=== PATIENT | female | born 1940 | race Hispanic/Latino ===

== ENCOUNTER 2020-01-09 05:16 | Emergency (ER) | payer MEDICARE, OTHER ==
[2020-01-09] MEDS ORDERED: ONDANSETRON HCL 4 MG/2 ML VIAL ONE (05:28)
[2020-01-09] MEDS ORDERED: FENTANYL CITRATE PF 50 MCG/1 ML 2ML VIAL ONE (05:28)
== END 2020-01-09 07:56 | disposition home or self-care (01) ==
LOC: EDH 05:16
DX: S13.9XXA Sprain of joints and ligaments of unspecified parts of neck, initial encounter (principal); S00.93XA Contusion of unspecified part of head, initial encounter; I10 Essential (primary) hypertension; Z88.0 Allergy status to penicillin; Z88.2 Allergy status to sulfonamides; Z88.6 Allergy status to analgesic agent; Z91.041 Radiographic dye allergy status; W18.39XA Other fall on same level, initial encounter; Y93.89 Activity, other specified; Y92.89 Other specified places as the place of occurrence of the external cause; Y99.8 Other external cause status
CPT/HCPCS: 70450; 71045; 72125; 73030; 96374; 96375; 99285; J2405; J3010

== ENCOUNTER 2020-01-12 09:14 | Emergency (ER) | payer OTHER ==
[2020-01-12] MEDS ORDERED: ONDANSETRON HCL 4 MG/2 ML VIAL ONE ×2 (09:58→12:40)
[2020-01-12 10:54] LABS: BASOPHILS % (AUTO) 0.1 % (0.0-5.0); EOSINOPHILS % (AUTO) 0.1 % (0.0-8.0); HEMATOCRIT 40.3 % (36-48); LYMPHOCYTES % (AUTO) 10.7 % (21.0-51.0); MEAN CORPUSCULAR HEMOGLOBIN 28.8 pg (27.0-33.0); MONOCYTES % (AUTO) 2.6 % (3.0-13.0); NEUTROPHILS % (AUTO) 86.2 % (40.0-77.0); PLATELET COUNT (AUTO) 230 K/uL (130-400); RED BLOOD CELL COUNT(AUTO) 4.48 MIL/uL (4.00-5.50); RED CELL DISTRIBUTION WIDTH 13.3 % (11.0-15.5)
[2020-01-12 11:08] LABS: CREATININE 0.8 mg/dL (0.5-1.5); POTASSIUM 4.5 mmol/L (3.5-5.1)
[2020-01-12] MEDS ORDERED: FENTANYL CITRATE PF 50 MCG/1 ML 2ML VIAL ONE (11:20)
[2020-01-12 11:53] LABS: INR 0.95 (0.85-1.15); PARTIAL THROMBOPLASTIN TIME 28.4 SEC (26.3-35.5); PROTHROMBIN TIME 10.3 SEC (9.6-11.6)
[2020-01-12 12:15] LABS: APPEARANCE,URINE CLOUDY (CLEAR); BILIRUBIN,URINE NEGATIVE (NEGATIVE); COLOR,URINE YELLOW (YELLOW); GLUCOSE, URINE (UA) NEGATIVE (NEGATIVE); KETONES,URINE NEGATIVE (NEGATIVE); LEUKOCYTE ESTERASE ,URINE SMALL (NEGATIVE); NITRATE,URINE NEGATIVE (NEGATIVE); OCCULT BLOOD,URINE MODERATE (NEGATIVE); PROTEIN,URINE 100 mg/dL (NEGATIVE); UROBILINOGEN,URINE 0.2 mg/dL (0.2-1.0)
[2020-01-12 12:18] LABS: BACTERIA,URINE Many /HPF (None Seen); RBC,URINE 0-1 /HPF (0-1); SQUAMOUS EPITHELIAL CELL,UR Many /HPF (0-2)
[2020-01-12 12:20] LABS: ALANINE AMINOTRANSFERASE 24 U/L (12-78); ALBUMIN 4.1 g/dL (3.5-5.0); ASPARTATE AMINOTRANSFERASE 26 U/L (10-37); BILIRUBIN,DIRECT < 0.1 mg/dL (0.0-0.3); BILIRUBIN,TOTAL 0.3 mg/dL (0.2-1.0)
[2020-01-12] MEDS ORDERED: LEVOFLOXACIN 500 MG/D5W 100 ML 100 ML ONE (12:40)
== END 2020-01-12 14:12 | disposition home or self-care (01) ==
LOC: EDH 09:14
DX: N39.0 Urinary tract infection, site not specified (principal); R11.2 Nausea with vomiting, unspecified; M54.42 Lumbago with sciatica, left side; S00.83XA Contusion of other part of head, initial encounter; S00.33XA Contusion of nose, initial encounter; I10 Essential (primary) hypertension; E78.00 Pure hypercholesterolemia, unspecified; Z88.0 Allergy status to penicillin; Z88.2 Allergy status to sulfonamides; Z88.6 Allergy status to analgesic agent; Z91.041 Radiographic dye allergy status; Z98.890 Other specified postprocedural states; W19.XXXA Unspecified fall, initial encounter; Y93.89 Activity, other specified; Y92.89 Other specified places as the place of occurrence of the external cause; Y99.8 Other external cause status
CPT/HCPCS: 36415; 70450; 80048; 80076; 81001; 82550; 83690; 84484; 85025; 85610; 85730; 87077; 87088; 87186; 93005; 96365; 96375; 96376; 99285; J2405 ×2; J1956; J3010

== ENCOUNTER → 2020-04-13 | Outpatient (CLI) | payer OTHER | END | disposition home or self-care (01) | LOC: RAH 13:07 | PROVIDERS: ATTEND Family Medicine | DX: I70.0 Atherosclerosis of aorta (principal); R91.8 Other nonspecific abnormal finding of lung field; J98.11 Atelectasis; M40.294 Other kyphosis, thoracic region | CPT/HCPCS: 71250 ==

== ENCOUNTER 2023-09-16 15:19 | Emergency (ER) | payer OTHER ==
[~2023-09-16] VITALS: Ht 142.2 cm; Wt 71.7 kg
[2023-09-16 16:10] LABS: BASOPHILS # (AUTO) 0.03 K/uL (0.00-0.20); BASOPHILS % (AUTO) 0.3 % (0.0-5.0); EOSINOPHILS # (AUTO) 0.31 K/uL (0.00-0.70); EOSINOPHILS % (AUTO) 3.3 % (0.0-8.0); HEMATOCRIT 42.6 % (36-48); IMMATURE GRANULOCYTE ABSOLUTE 0.05 K/uL (0-1); LYMPHOCYTES # (AUTO) 1.8 K/uL (1.0-4.8); LYMPHOCYTES % (AUTO) 18.9 % (21.0-51.0); MEAN CORPUSCULAR HEMOGLOBIN 28.8 pg (27.0-33.0); MEAN CORPUSCULAR HGB CONC 31.5 g/dL (32.0-36.0); MEAN CORPUSCULAR VOLUME 91.6 fL (79-99); MONOCYTES # (AUTO) 0.7 K/uL (0.1-1.0); NEUTROPHILS # (AUTO) 6.5 K/uL (1.8-7.7); PLATELET COUNT (AUTO) 249 K/uL (130-400); RED BLOOD CELL COUNT(AUTO) 4.65 MIL/uL (4.00-5.50); RED CELL DISTRIBUTION WIDTH 13.7 % (11.0-15.5); WHITE BLOOD COUNT (AUTO) 9.4 K/uL (4.8-10.8)
[2023-09-16 16:18] LABS: POTASSIUM 3.9 mmol/L (3.5-5.1)
[2023-09-16] MEDS ORDERED: LACTATED RINGERS 1000ML 1,000 ML IV ONE (16:30)
[2023-09-16 17:03] LABS: RAPID GROUP A STREP negative (NEGATIVE)
[2023-09-16 17:11] LABS: INFLUENZA TYPE A Negative For Type A (NEGATIVE); INFLUENZA TYPE B Negative For Type B (NEGATIVE)
[2023-09-16 17:12] LABS: COVID19 (SARS ANTIGEN RAPID) PRESUMPTIVE NEGATIVE (NEGATIVE)
[2023-09-16] MEDS ORDERED: METOCLOPRAMIDE 10 MG/2 ML VIAL IVP ONE (18:00)
[2023-09-16] MEDS ORDERED: KETOROLAC 30MG VIAL (30MG/ML) IVP ONE (18:00)
[2023-09-16] MEDS ORDERED: DIAZEPAM 5 MG/ML 2 ML SYG IVP ONE (18:00)
[2023-09-16] MEDS ORDERED: FAMOTIDINE 20MG VIAL IV ONE (18:00)
[2023-09-16 20:25] LABS: APPEARANCE,URINE CLOUDY (CLEAR); BILIRUBIN,URINE NEGATIVE (NEGATIVE); COLOR,URINE LIGHT-YELLOW (YELLOW); GLUCOSE, URINE (UA) NEGATIVE (NEGATIVE); KETONES,URINE NEGATIVE (NEGATIVE); LEUKOCYTE ESTERASE ,URINE 25 Leu/uL (NEGATIVE); NITRATE,URINE 2+ (NEGATIVE); OCCULT BLOOD,URINE NEGATIVE (NEGATIVE); PH,URINE 5.5 (5.0-8.0); PROTEIN,URINE NEGATIVE (NEGATIVE); UROBILINOGEN,URINE 0.2 mg/dL (0.2-1.0)
[2023-09-16 20:29] LABS: ADD UA MICROSCOPIC YES
[2023-09-16 20:31] LABS: BACTERIA,URINE MOD /HPF (None Seen); MUCUS,URINE RARE LPF (None Seen); SQUAMOUS EPITHELIAL CELL,UR RARE /HPF (0-2)
[2023-09-16] MEDS ORDERED: IBUP-1493 PO (22:28)
[2023-09-16] MEDS ORDERED: LIDOP TD (22:28)
[2023-09-16] MEDS ORDERED: CYCL-309 PO (22:28)
[2023-09-16] MEDS ORDERED: GABA300C PO (22:28)
[2023-09-17 00:38] VITALS: BP 165/79; PULSE 76; RESP 16; O2SAT 97
== END 2023-09-17 00:40 | disposition home or self-care (01) ==
LOC: EDH 15:19
DX: H57.11 Ocular pain, right eye (principal); R53.1 Weakness; I10 Essential (primary) hypertension; M19.90 Unspecified osteoarthritis, unspecified site; E03.9 Hypothyroidism, unspecified; Z20.822 Contact with and (suspected) exposure to COVID-19; Z88.0 Allergy status to penicillin; Z88.2 Allergy status to sulfonamides; Z88.5 Allergy status to narcotic agent; Z91.041 Radiographic dye allergy status
CPT/HCPCS: 99284; 96374; 96375; 96361; 87426; 82550; 80048; 85025; 87077; 87088; 87186; 87880; 87420; 87804 ×2; 83605; 81001; 36415; 72110; 72190; J7120; J3490; J3360; J1885; J2765

== ENCOUNTER 2024-01-16 13:54 | Emergency (ER) | payer OTHER ==
[~2024-01-16] VITALS: Ht 142.2 cm; Wt 71.7 kg
[~2024-01-16 13:54] MED LIST: CYCL-309 PO; GABA300C PO; IBUP-1493 PO; LIDOP TD
[2024-01-16 14:30] LABS: BASOPHILS # (AUTO) 0.03 K/uL (0.00-0.20); BASOPHILS % (AUTO) 0.4 % (0.0-5.0); EOSINOPHILS # (AUTO) 0.68 K/uL (0.00-0.70); EOSINOPHILS % (AUTO) 8.2 % (0.0-8.0); HEMATOCRIT 33.6 % (36-48); IMMATURE GRANULOCYTE ABSOLUTE 0.03 K/uL (0-1); LYMPHOCYTES # (AUTO) 2.5 K/uL (1.0-4.8); LYMPHOCYTES % (AUTO) 30.6 % (21.0-51.0); MEAN CORPUSCULAR HEMOGLOBIN 29.2 pg (27.0-33.0); MEAN CORPUSCULAR HGB CONC 31.8 g/dL (32.0-36.0); MEAN CORPUSCULAR VOLUME 91.8 fL (79-99); MONOCYTES # (AUTO) 0.7 K/uL (0.1-1.0); MONOCYTES % (AUTO) 8.1 % (3.0-13.0); NEUTROPHILS # (AUTO) 4.3 K/uL (1.8-7.7); NEUTROPHILS % (AUTO) 52.3 % (40.0-77.0); PLATELET COUNT (AUTO) 272 K/uL (130-400); RED BLOOD CELL COUNT(AUTO) 3.66 MIL/uL (4.00-5.50); RED CELL DISTRIBUTION WIDTH 14.7 % (11.0-15.5); WHITE BLOOD COUNT (AUTO) 8.3 K/uL (4.8-10.8)
[2024-01-16 14:36] LABS: APPEARANCE,URINE CLEAR (CLEAR); BILIRUBIN,URINE NEGATIVE (NEGATIVE); COLOR,URINE YELLOW (YELLOW); GLUCOSE, URINE (UA) NEGATIVE (NEGATIVE); KETONES,URINE NEGATIVE (NEGATIVE); LEUKOCYTE ESTERASE ,URINE 500 Leu/uL (NEGATIVE); NITRATE,URINE 2+ (NEGATIVE); OCCULT BLOOD,URINE NEGATIVE (NEGATIVE); PH,URINE 6.5 (5.0-8.0); PROTEIN,URINE NEGATIVE (NEGATIVE); UROBILINOGEN,URINE 0.2 mg/dL (0.2-1.0)
[2024-01-16 14:43] LABS: CREATININE 0.9 mg/dL (0.5-1.0); POTASSIUM 4.6 mmol/L (3.5-5.1)
[2024-01-16 14:47] LABS: ALBUMIN 2.8 g/dL (3.5-5.0); BILIRUBIN,TOTAL 0.2 mg/dL (0.2-1.0); TOTAL PROTEIN, SERUM 6.9 g/dL (6.0-8.3)
[2024-01-16 15:10] LABS: ADD UA MICROSCOPIC YES
[2024-01-16 15:11] LABS: BACTERIA,URINE MANY /HPF (None Seen); MUCUS,URINE RARE LPF (None Seen); SQUAMOUS EPITHELIAL CELL,UR RARE /HPF (0-2)
[2024-01-16] MEDS ORDERED: IOHEXOL-350 75 ML VIAL IV ONE (16:59)
[2024-01-16] MEDS: KETOROLAC 15MG/ML VIAL (15MG/ML) IV ONE (17:06)
[2024-01-16] MEDS: 0.9%NACL 1000ML 1,000 ML IV ONE (17:06)
[2024-01-16] MEDS: SOLU-MEDROL 125MG VIAL IVP ONE (17:06)
[2024-01-16] MEDS ORDERED: NITR100C PO (18:40)
[2024-01-16] MEDS ORDERED: METH4TAB3 PO (18:40)
[2024-01-16] MEDS: CEFTRIAXONE 1G VIAL IV ONE (19:11)
[2024-01-16 19:14] VITALS: BP 151/78; PULSE 80; RESP 21; O2SAT 99
== END 2024-01-16 21:12 | disposition home or self-care (01) ==
LOC: EDH 13:54
DX: N30.01 Acute cystitis with hematuria (principal); N20.0 Calculus of kidney; D53.9 Nutritional anemia, unspecified; M54.50 Low back pain, unspecified; R53.81 Other malaise; I10 Essential (primary) hypertension; E03.9 Hypothyroidism, unspecified; M19.90 Unspecified osteoarthritis, unspecified site; Z79.899 Other long term (current) drug therapy; Z88.0 Allergy status to penicillin; Z88.2 Allergy status to sulfonamides; Z88.8 Allergy status to other drugs, medicaments and biological substances
CPT/HCPCS: 99285; 74176; 96374; 96375; 96361; 80053; 83690; 85025; 87040 ×2; 87077; 87088; 87186; 81001; 36415; J7030; J2919; J0696; J1885; Q9967